=== PATIENT | female | born 1980 | race Caucasian/White ===

== ENCOUNTER 2018-01-20 09:36 | Emergency (ER) | payer OTHER | END 2018-01-20 12:37 | disposition home or self-care (01) | LOC: FTE 09:36 | DX: S29.019A Strain of muscle and tendon of unspecified wall of thorax, initial encounter (principal); S39.012A Strain of muscle, fascia and tendon of lower back, initial encounter; V49.50XA Passenger injured in collision with unspecified motor vehicles in traffic accident, initial encounter | CPT/HCPCS: 72072; 72100; 99283-25 ==